=== PATIENT | male | born 1965 | race Caucasian/White ===

== ENCOUNTER → 2016-10-19 | Outpatient (CLI) | payer BC | LOC: RAD 15:11 | DX: M54.9 Dorsalgia, unspecified (principal); M47.896 Other spondylosis, lumbar region | CPT/HCPCS: 72100 ==

== ENCOUNTER → 2020-10-15 | Outpatient (CLI) | payer BC | LOC: CT 14:37 | DX: R10.9 Unspecified abdominal pain (principal); M54.9 Dorsalgia, unspecified; R31.9 Hematuria, unspecified | CPT/HCPCS: 36415; 82565; Q9967 ==

== ENCOUNTER → 2021-05-13 | Outpatient (CLI) | payer BC ==
[~2021-05-13] MED LIST: CELECOXIB200 MG PO; CRESTOR20 MG PO; LOW DOSE ASPIRI81 MG PO; METOPROLOL SUCC25 MG PO; TYLENOL EXTRA500 MG PO; VITAMIN D PO; VITAMIN E400 UNI1 PO
[2021-05-13 08:33] LABS: HEMOGLOBIN 17.5 gm/dl (14.0-17.5); RED BLOOD COUNT 5.15 M/UL (4.20-5.50); WHITE BLOOD COUNT 5.6 K/UL (4.5-11.0)
[2021-05-13 09:02] LABS: BUN/CREATININE RATIO 20 (0-10)
== END ==
LOC: OPSV2 07:51 → EDSTATUS 08:00
PROVIDERS: Orthopaedic Surgery
DX: Z01.818 Encounter for other preprocedural examination (principal); M17.11 Unilateral primary osteoarthritis, right knee
CPT/HCPCS: 71046; 80048; 85027; 93005

== ENCOUNTER → 2021-05-26 | Outpatient (CLI) | payer BC ==
[~2021-05-26] MED LIST changes: +ASPIRIN EC81 MG PO; +CYCLOBENZAPRINE10 MG PO; +ENDOCET 7.5-321 EACH PO; +ZOFRAN 4 MG TAB4 MG PO
[2021-05-26 14:43] LABS: BUN/CREATININE RATIO 19 (0-10)
== END ==
LOC: LAB 13:42
PROVIDERS: Orthopaedic Surgery
DX: Z01.812 Encounter for preprocedural laboratory examination (principal); M17.11 Unilateral primary osteoarthritis, right knee; I10 Essential (primary) hypertension
CPT/HCPCS: 36415; 80048; 86850; 86900; 86901